=== PATIENT | male | born 1960 | race African-American/Black ===

== ENCOUNTER 2025-06-02 09:22 | Inpatient (IN) | payer MEDICARE, OTHER ==
[~2025-06-02] VITALS: Ht 175.3 cm; Wt 105.3 kg
[2025-06-02 10:14] LABS: BASOPHILS % 0.7 % (0.0-2.0); EOSINOPHILS % 0.9 % (0.0-5.0); HEMATOCRIT. 46.3 % (42.0-52.0); HEMOGLOBIN. 15.1 g/dL (14.0-18.0); LYMPHOCYTES % 18.2 % (20.0-50.0); MONOCYTES % 5.0 % (2.0-8.0); NEUTROPHILS % 75.2 % (40.0-76.0); RED BLOOD CELL COUNT 5.84 mill/uL (4.7-6.1); RED CELL DISTRIBUTION WIDTH 15.7 % (11.6-14.6)
[2025-06-02 10:27] LABS: CREATININE 1.1 mg/dL (0.6-1.3); TROPONIN I HIGH SENSITIVITY 10 ng/L (3.0-53); UREA NITROGEN BLOOD 6 mg/dL (9-23)
[2025-06-02] MEDS: HYDRALAZINE 20MG/ML VIAL IV ONE (10:42)
[2025-06-02] MEDS ORDERED: DEXTROSE 50% WATER 50ML SYRINGE IV PRN (15:15)
[2025-06-02] MEDS ORDERED: DOCUSATE SODIUM 100MG CAPSULE PO PRN (15:15)
[2025-06-02] MEDS ORDERED: ONDANSETRON HCL 4MG/2ML INJ IV PRN (15:15)
[2025-06-02] MEDS ORDERED: IPRATROPIUM/ALBUTEROL 0.5-3(2.5)MG/3ML NEB HHN PRN (15:15)
[2025-06-02] MEDS ORDERED: ACETAMINOPHEN 325MG TABLET PO PRN ×2 (15:15)
[2025-06-02] MEDS: SODIUM CHLORIDE 0.45% 1,000 ML IV SCH (15:56)
[2025-06-02 16:00] VITALS: BP 134/83; PULSE 75; RESP 18; TEMP 36.3; O2SAT 99
[2025-06-02 17:03] VITALS: BP 134/83; PULSE 75; RESP 18; TEMP 36.3068
[2025-06-02] MEDS ORDERED: ACET650S27 RC (17:25)
[2025-06-02] MEDS ORDERED: ATEN-42 PO (17:30)
[2025-06-02] MEDS ORDERED: FURO20TA4 PO (17:30)
[2025-06-02] MEDS ORDERED: ATOR20TA65 PO (17:32)
[2025-06-02] MEDS ORDERED: CHOL400D7 PO (17:32)
[2025-06-02] MEDS ORDERED: SENN1TAB35 MT (17:34)
[2025-06-02] MEDS ORDERED: LOPE2TAB26 PO (17:35)
[2025-06-02] MEDS ORDERED: LISI10TA26 PO (17:35)
[2025-06-02] MEDS ORDERED: TAMS-54 PO (17:36)
[2025-06-02] MEDS ORDERED: METF-1150 PO (17:37)
[2025-06-02] MEDS ORDERED: XAR15 GT (17:37)
[2025-06-02] MEDS ORDERED: DEBROX EACH EAR (17:38)
[2025-06-02] MEDS: INSULIN LISPRO 100 UNITS/ML SUBCUT SCH (17:50)
[2025-06-02] MEDS ORDERED: *PATIENT'S OWN MEDICATION STORAGE XX SCH (18:15)
[2025-06-02] MEDS: BLOOD SUGAR DIAGNOSTIC STRIP TEST SCH (18:19)
[2025-06-02] MEDS: FAMOTIDINE 20MG/2ML VIAL IV SCH (18:35)
[2025-06-02] MEDS: HYDRALAZINE HCL 25MG TABLET PO SCH (18:35)
[2025-06-02 20:00] VITALS: BP 151/88; PULSE 76; RESP 20; TEMP 36.5; O2SAT 98
[2025-06-02 21:15] LABS: BASOPHILS % 0.4 % (0.0-2.0); EOSINOPHILS % 1.6 % (0.0-5.0); HEMATOCRIT. 43.3 % (42.0-52.0); HEMOGLOBIN. 13.9 g/dL (14.0-18.0); LYMPHOCYTES % 31.3 % (20.0-50.0); MEAN PLATELET VOLUME 8.6 fl (7.4-10.4); MONOCYTES % 10.4 % (2.0-8.0); NEUTROPHILS % 56.3 % (40.0-76.0); PLATELET 326 x1000/uL (130-400); RED BLOOD CELL COUNT 5.37 mill/uL (4.7-6.1); RED CELL DISTRIBUTION WIDTH 16.2 % (11.6-14.6)
[2025-06-02] MEDS: ATORVASTATIN CALCIUM 40MG TABLET PO SCH (21:19)
[2025-06-02 21:30] LABS: CREATINE KINASE MB FRACTION 1.1 ng/mL (0.5-3.6); TROPONIN I HIGH SENSITIVITY 9.0 ng/L (3.0-53)
[2025-06-02] MEDS ORDERED: IOHEXOL-350 100 ML BOTTLE ONE (22:09)
[2025-06-03] VITALS: BP 134/78; PULSE 89; RESP 20; TEMP 36.1; O2SAT 99
[2025-06-03 04:00] VITALS: BP 171/93; PULSE 87; RESP 20; TEMP 36.2; O2SAT 97
[2025-06-03 07:44] LABS: BASOPHILS % 0.4 % (0.0-2.0); EOSINOPHILS % 1.7 % (0.0-5.0); HEMATOCRIT. 40.2 % (42.0-52.0); HEMOGLOBIN. 13.4 g/dL (14.0-18.0); LYMPHOCYTES % 35.9 % (20.0-50.0); MEAN PLATELET VOLUME 8.3 fl (7.4-10.4); MONOCYTES % 7.6 % (2.0-8.0); NEUTROPHILS % 54.4 % (40.0-76.0); PLATELET 328 x1000/uL (130-400); RED BLOOD CELL COUNT 5.14 mill/uL (4.7-6.1); RED CELL DISTRIBUTION WIDTH 15.8 % (11.6-14.6)
[2025-06-03 07:49] LABS: INR 1.1
[2025-06-03 08:00] VITALS: BP 154/96; PULSE 87; RESP 18; TEMP 36.4; O2SAT 98
[2025-06-03 08:44] LABS: CREATININE 1.2 mg/dL (0.6-1.3)
[2025-06-03 08:45] LABS: CREATINE KINASE MB FRACTION 1.0 ng/mL (0.5-3.6); TRIGLYCERIDE 100 mg/dL (0-150); TROPONIN I HIGH SENSITIVITY 8.0 ng/L (3.0-53); UREA NITROGEN BLOOD 9 mg/dL (9-23)
[2025-06-03 08:46] LABS: ASPARTATE AMINOTRANSFERASE 11 IU/L (<34); LDL CHOLESTEROL 69 mg/dL (5-100); PROTEIN TOTAL 6.4 g/dL (6.0-8.3)
[2025-06-03 08:47] LABS: BILIRUBIN DIRECT 0.1 mg/dL (<=3.0); BILIRUBIN TOTAL 0.4 mg/dL (0.1-1.0); PHOSPHORUS 2.8 mg/dL (2.5-4.9)
[2025-06-03] MEDS: ENOXAPARIN 40MG/0.4ML SYR SUBCUT SCH (10:16)
[2025-06-03] MEDS: SENNOSIDES/DOCUSATE SOD 8.6/50MG TABLET PO SCH (10:17)
[2025-06-03] MEDS: TAMSULOSIN HCL 0.4MG SR CAPSULE PO SCH (10:17)
[2025-06-03] MEDS: ASPIRIN 81MG TABLET PO SCH (10:17)
[2025-06-03] MEDS: ATENOLOL 25MG TABLET PO SCH (10:18)
[2025-06-03] MEDS: ATORVASTATIN CALCIUM 20MG TABLET PO SCH (10:18)
[2025-06-03] MEDS: FUROSEMIDE 20MG TABLET PO SCH (10:18)
[2025-06-03 12:00] VITALS: BP 140/65; PULSE 88; RESP 18; TEMP 36.4; O2SAT 98
[2025-06-03 16:00] VITALS: BP_SYST 133; BP_SYST 155; BP_DIAS 68; BP_DIAS 80; PULSE 72; PULSE 85; RESP 18; TEMP 36.3; TEMP 36.4; O2SAT 97; O2SAT 99
[2025-06-03 20:00] VITALS: BP 166/92; PULSE 75; RESP 20; TEMP 36.2; O2SAT 97
[2025-06-04] VITALS: BP 164/96; PULSE 76; RESP 20; TEMP 35.8; O2SAT 97
[2025-06-04 04:00] VITALS: BP 184/99; PULSE 82; RESP 20; TEMP 36.2; O2SAT 100
[2025-06-04] MEDS: CLONIDINE 0.1MG TABLET PO PRN (04:16)
[2025-06-04 07:59] LABS: CLARITY URINE CLEAR (CLEAR); COLOR URINE YELLOW (YELLOW); GLUCOSE URINE NEGATIVE (NEGATIVE); KETONES URINE NEGATIVE (NEGATIVE); LEUKOCYTE ESTERASE URINE NEGATIVE (NEGATIVE); NITRITE URINE NEGATIVE (NEGATIVE); OCCULT BLOOD URINE NEGATIVE (NEGATIVE); PH URINE 6.0 (4.5-8.0); PROTEIN URINE NEGATIVE (NEGATIVE); SPECIFIC GRAVITY URINE 1.009 (1.005-1.030); UROBILINOGEN URINE 0.2 E.U./dL (0.2-1.0)
[2025-06-04 08:00] VITALS: BP 134/85; PULSE 74; RESP 15; TEMP 36.7; O2SAT 100
[2025-06-04 08:09] LABS: *AMPHETAMINES SCREEN URINE NEGATIVE (NEGATIVE); *BARBITURATES SCREEN URINE NEGATIVE (NEGATIVE); *BENZODIAZEPINES SCREEN URINE NEGATIVE (NEGATIVE); *COCAINE SCREEN URINE NEGATIVE (NEGATIVE)
[2025-06-04 08:10] LABS: CANNABINOID URINE SCREEN NEGATIVE (NEGATIVE); ECSTASY MDMA SCREEN URINE NEGATIVE (NEGATIVE); METHADONE URINE SCREEN NEGATIVE (NEGATIVE); OPIATES URINE SCREEN NEGATIVE (NEGATIVE); PHENCYCLIDINE URINE SCREEN NEGATIVE (NEGATIVE)
[2025-06-04] MEDS ORDERED: GLAT20SY SQ (11:08)
[2025-06-04 12:00] VITALS: BP 117/72; PULSE 77; RESP 15; TEMP 36.9; O2SAT 99
[2025-06-04] MEDS ORDERED: HYDR25TA78 PO (14:15)
[2025-06-04 14:21] VITALS: BP 117/72; PULSE 77; TEMP 98.5; O2SAT 99
[2025-06-04 16:00] VITALS: BP 146/88; PULSE 76; RESP 18; TEMP 36.2; O2SAT 95
== END 2025-06-04 20:15 | disposition home or self-care (01) | DRG 305 ==
LOC: ER 09:22 → 6WST 11:15 → EDBEDREQ 11:21 → EDBEDREQTM 11:21 → ENRESERV 11:37
PROVIDERS: ADMIT Internal Medicine; ATTEND Internal Medicine
DX: I16.0 Hypertensive urgency (principal); I69.851 Hemiplegia and hemiparesis following other cerebrovascular disease affecting right dominant side; I51.7 Cardiomegaly; E11.9 Type 2 diabetes mellitus without complications; E78.00 Pure hypercholesterolemia, unspecified; E04.9 Nontoxic goiter, unspecified; I25.10 Atherosclerotic heart disease of native coronary artery without angina pectoris; Z79.01 Long term (current) use of anticoagulants; Z79.84 Long term (current) use of oral hypoglycemic drugs; Z79.899 Other long term (current) drug therapy; Z99.3 Dependence on wheelchair
CPT/HCPCS: 36415; 71045; 71275; 80048; 80061; 80076; 80305; 81003; 82550; 82553; 82962; 83036; 83735; 83880; 84100; 84443; 84484; 85025; 92610; 93005; 93880; 93970; 97162; 97166; 97530; 99285; A4606; J0360; J1308; J1650; J1815; Q9967